=== PATIENT | male | born 1960 | race Caucasian/White ===

== ENCOUNTER 2020-12-03 20:56 | Inpatient (IN) | payer BC ==
[~2020-12-03] VITALS: Ht 180.3 cm; Wt 79.6 kg
[~2020-12-03 20:56] MED LIST: BACTRIM DS TAB1 EACH PO; MECLIZINE HCL25 MG PO; [UNRECOGNIZED DRUG - REMARK]
[2020-12-03 20:58] VITALS: BP 110/79
[2020-12-03 21:28] LABS: ABSOLUTE NEUTROPHILS 6.7 thou/uL (1.4-8.2); BASOPHILS 1.1 % (0.0-2.0); EOSINOPHILS 2.9 % (0.0-3.0); HEMATOCRIT 44.5 % (42.0-52.0); HEMOGLOBIN 15.2 gm/dL (14.0-18.0); LYMPHOCYTES 24.9 % (24.0-44.0); MCH 30.9 pg (26.0-34.0); MCHC 34.1 g/dL (28.0-37.0); MCV 90.4 fL (80.0-100.0); MONOCYTES 7.9 % (1.0-8.0); PLATELET COUNT 276 thou/uL (150-400); POLYS 63.2 % (36.0-66.0); RBC 4.92 mil/uL (4.50-6.00); RDW 13.1 % (10.5-14.5); WBC 10.7 thou/uL (4.0-11.0)
[2020-12-03 21:33] LABS: ANION GAP 3 mmol/L (7-16); BUN 15 mg/dL (7-18); CALCIUM 8.8 mg/dL (8.5-10.1); CHLORIDE 101 mmol/L (98-107); CO2 33 mmol/L (21-32); CREATININE 1.2 mg/dL (0.7-1.3); GLUCOSE 148 mg/dL (74-106); POTASSIUM 3.6 mmol/L (3.5-5.1); SODIUM 137 mmol/L (136-145)
[2020-12-03] MEDS ORDERED: COZAAR 25 MG TA25 M2 PO (21:33)
[2020-12-03] MEDS ORDERED: ASA81BEC PO (21:33)
[2020-12-03] MEDS ORDERED: NORVASC10 MG PO (21:33)
[2020-12-03 21:41] LABS: TROPONIN-I <0.06 ng/mL (<0.06)
[2020-12-03 21:43] LABS: PROTIME 11.1 Seconds (9.3-11.4)
[2020-12-03 22:23] LABS: CHOLESTEROL 202 mg/dL (<200); HDL CHOLESTEROL 26 mg/dL (>40); LDL CHOLESTEROL 129 mg/dL (<100); TC:HDL 7.8 Ratio (Not establshd); TRIGLYCERIDE 238 mg/dL (<150); VLDL 48 mg/dL (<40)
[2020-12-03 22:37] LABS: SERUM ASSESSMENT Clear
[2020-12-04 04:45] VITALS: BP 109/76
--- NOTE | 2020-12-04 06:09 | NUR ---
patient was recieved from warehouse general laborer at approx 2315. patient was keep flat until 0200. patient was able to move around in the bed after. patient was to stay in the bed until after breakfast than able to get up to the chair. patients meagan Tavares placed on the visitor list.rounds were made. the bed is in a low and locked position. the bed alarm is on
[2020-12-04 06:47] LABS: ALBUMIN 3.5 g/dL (3.4-5.0); CALCIUM 8.7 mg/dL (8.5-10.1); POTASSIUM 3.9 mmol/L (3.5-5.1); TOTAL BILIRUBIN 0.2 mg/dL (0.2-1.0); TOTAL PROTEIN 6.6 g/dL (6.4-8.2)
--- NOTE | 2020-12-04 07:07 | EKG ---
[place] [address] [facility] [place] [address] ELECTROCARDIOGRAM REPORT Name: TAYLOR CHAN Room #: 205-P ADM IN M.R.#: [id number] Admission: 12/03/20 Attend Phys: Antelmo Arriola Discharge: Date of : 56 Report #: [id number] [facility] ED Test Date: 2020-12-03 Test Time: 21:07:56 Pat Name: TAYLOR CHAN Department: Room: [facility] Gender: M Protection Agent: [email or web address] : 1960 Requested By: Kyle Shin Order Number: [id number] MD: Arun Sigala Measurements Intervals [facility] Rate: 61 P: 66 NE: 175 QRS: 73 QRSD: 102 T: 90 QT: 414 QTc: 417 Interpretive Statements Sinus rhythm Inferior infarct, acute (RCA) Probable RV involvement, suggest recording right precordial leads Baseline wander in lead(s) III,V1 No previous ECG available for comparison Electronically Signed On 12-04-2020 7:07:12 CDT by Arun Sigala [email or web address] <ELECTRONICALLY SIGNED> By: Arun Sigala MD, [facility] 03/706 06 06 Arun Sigala MD, [facility] /EPI
[2020-12-04 07:10] VITALS: BP 134/88
[2020-12-04 07:15] VITALS: BP 134/88
[2020-12-04] MEDS ORDERED: EFFIENT10 MG PO (09:37)
[2020-12-04] MEDS ORDERED: CRESTOR40 MG PO (09:38)
[2020-12-04] MEDS ORDERED: ASPIRIN325 PO (09:38)
[2020-12-04] MEDS ORDERED: METOPROLOL SUCC25 M1 PO (09:38)
--- NOTE | 2020-12-04 10:05 | EKG ---
[place] [address] [facility] [place] [address] ELECTROCARDIOGRAM REPORT Name: TAYLOR CHAN Room #: 205- ADM IN M.R.#: [id number] Admission: 12/03/20 Attend Phys: Antelmo Arriola Discharge: Date of : 56 Report #: [id number] [facility] Test Date: 2020-12-04 Test Time: 08:46:21 Pat Name: TAYLOR CHAN Department: Room: 205 P Gender: M Heat Treat Furnace Operator: STEVEN : 1960 Requested By: Radha Man Order Number: [id number] MD: Arun Sigala Measurements Intervals [place] Rate: 76 P: 14 [place]: 155 QRS: -14 QRSD: 94 T: 0 QT: 397 QTc: 447 Interpretive Statements Sinus rhythm Baseline wander in lead(s) V1 Compared to ECG 12/03/2020 21:07:56 Myocardial infarct finding no longer present Electronically Signed On 12-04-2020 10:05:00 CDT by Arun Sigala [email or web address] <ELECTRONICALLY SIGNED> By: Arun Sigala MD, [facility] 12/04/20 1005 5 5 Arun Sigala MD, [facility] /EPI
--- NOTE | 2020-12-04 10:35 | 2DMMODE ---
[facility] [place] [address] 2 D/M-MODE ECHOCARDIOGRAM Name: TAYLOR CHAN Room #: 205-P ADM IN M.R.#: [id number] Admission: 12/03/20 Attend Phys: Antelmo Arriola Discharge: Date of : 56 Report #: [id number] THIS REPORT FOR: cc: Selivn Purvis David J. DO Lammoglia, Francisco J. MD ~ APPROVED REPORT Study performed: 12/04/2020 09:49:00 EXAM: Comprehensive 2D, Doppler, and color-flow Echocardiogram Patient Location: Bedside Room #: 205 Status: routine BSA: 2.02 HR: 79 bpm BP: 134/88 mmHg Rhythm: NSR Other Information Study Quality: Good Indications Chest pain. STEMI, status post PCI. Hx: HTN, HLP, tobacco. 2D Dimensions RVDd: 33.42 mm IVSd: 11.86 (7-11mm) LVOT Diam: 23.23 (18-24mm) LVDd: 49.66 mm PWd: 10.26 (7-11mm) Ascending Ao: 35.81 (22-36mm) LVDs: 35.91 (25-40mm) Left Atrium: 35.95 (27-40mm) Aortic Root: 39.66 mm Volumes Left Atrial Volume (Systole) Single Plane 4CH: 35.77 mL Single Plane 2CH: 37.51 mL LA ESV Index: 20.00 mL/m2 Aortic Valve AoV Peak Leroy.: 1.65 m/s AO Peak Gr.: 10.94 mmHg LVOT Max P.69 mmHg LVOT Max V: 1.08 m/s [facility] [address] [place] [address] 2 D/M-MODE ECHOCARDIOGRAM Name: TAYLOR CHAN Digna Room #: 205-P [facility] IN [facility]#: [id number] Admission: 12/03/20 Attend Phys: Antelmo Myles Discharge: Date of : 56 Report #: [id number] [id number] Vmax: 2.77 cm2 Mitral Valve E/A Ratio: 1.2 MV Decel. Time: 158.12 ms MV E Max Leroy.: 0.94 m/s MV A Leroy.: 0.80 m/s MV PHT: 45.85 ms IVRT: 69.20 ms Pulmonary Valve PV Peak Leroy.: 0.92 m/s PV Peak Gr.: 3.39 mmHg Pulmonary Vein P Vein S: 0.86 m/s P Vein A: 0.40 m/s P Vein D: 0.49 m/s P Vein A Dur.: 101.5 msec P Vein S/D Ratio: 1.76 Tricuspid Valve RAP Estimate: 5.00 mmHg Left Ventricle The left ventricle is normal size. Possible hypokinesis of the posterior wall. Borderline concentric left ventricular hypertrophy. Left ventricular systolic function is normal. LVEF is 55-60%. Right Ventricle The right ventricle is normal size. The right ventricular systolic function is normal. Atria The left atrium size is normal. The right atrium size is normal. Aortic Valve The aortic valve is normal in structure. Leaflets are mildly thickened and calcified. Trace aortic regurgitation. There is no aortic valvular stenosis. Mitral Valve The mitral valve is normal in structure. Trace mitral regurgitation. Tricuspid Valve The tricuspid valve is normal in structure. There is no tricuspid valve regurgitation noted. Unable to assess PA pressure. [facility] [place] [address] 2 D/M-MODE ECHOCARDIOGRAM Name: TAYLOR CHAN Digna Room #: 205-P [facility] IN M.R.#: [id number] Admission: 12/03/20 Attend Phys: Antelmo Myles Discharge: Date of : 56 Report #: [id number] Pulmonic Valve The pulmonary valve is normal in structure. There is no pulmonic valvular regurgitation. Great Vessels Aortic root is mildly dilated (4.0cm). The ascending aorta is normal in size. IVC is normal in size and collapses >50% with inspiration. Pericardium There is no pericardial effusion. <Conclusion> The left ventricle is normal size. Borderline concentric left ventricular hypertrophy. LVEF is 55-60%. The aortic valve is normal in structure. Leaflets are mildly thickened and calcified. Trace aortic regurgitation. The mitral valve is normal in structure. Trace mitral regurgitation. The tricuspid valve is normal in structure. There is no tricuspid valve regurgitation noted. Unable to assess PA pressure. The pulmonary valve is normal in structure. Aortic root is mildly dilated (4.0cm). The ascending aorta is normal in size. There is no pericardial effusion. <ELECTRONICALLY SIGNED> By: Antelmo Arriola MD 12/04/20 1035 1035 1035 Antelmo Arriola MD /INF
[2020-12-04 11:30] VITALS: BP 115/73
[2020-12-04 14:33] LABS: HEMATOCRIT 46.3 % (42.0-52.0); HEMOGLOBIN 15.3 gm/dL (14.0-18.0); MCH 30.8 pg (26.0-34.0); MCV 93.3 fL (80.0-100.0); RBC 4.96 mil/uL (4.50-6.00); RDW 13.1 % (10.5-14.5); WBC 10.3 thou/uL (4.0-11.0)
[2020-12-04 15:10] VITALS: BP 115/80
--- NOTE | 2020-12-04 16:45 | NUR ---
RECEIVED PT'S CARE AROUND 0710; PT. ON BED; ALERT; R. GROIN SIDE C/D/I; NO HEMATOMA; DURING AM ASSESSMENT PT. AOX4; NO C/O PAIN; AM MEDICATIONS GIVEN; EDUCATED ABOUT NEW MEDICATIONS; EDUCATED ABOUT USING URINAL; ST. UNDERSTANDING; EDUCATED D/C NEXT DAY; SR ON THE MONITOR; EDUCATED ABOUT CALLING IMMEDIATELY IF HAVING PAIN; ST. UNDERSTANDING; SR ON THE MONITOR; ASSESSMENT CHARGED; FOLLOWING POC; WILL PASS ON REPORT;
[2020-12-04 19:58] VITALS: BP 132/85
--- NOTE | 2020-12-05 04:03 | NUR ---
SLEPT MOST OF SHIFT. UP AD KURT TO BATHROOM WITH STEADY GAIT. NO COMPLAINTS OF CHEST PAIN OR SHORTNESS OF BREATH THIS NOC. RIGHT GROIN SITE DSG C/D/I WITHOUT HEMATOMA OR BLEEDING. PROGRESSING TOWARDS DISCHARGE GOALS TODAY. WORKING ON GOALS AND PLAN OF CARE FOR NOC. CONTINUE TO ASSES.
[2020-12-05 04:55] VITALS: BP 113/72
[2020-12-05 07:10] VITALS: BP 109/68
--- NOTE | 2020-12-05 10:19 | NUR ---
RECEIVED PT'S CARE AROUND 0710; PT. ON BED; ALERT; DURING AM ASSESSMENT PT. AOX4; NO C/O PAIN; SR ON THE MONITOR; AM MEDICATIONS GIVEN; EDUCATED ABOUT AM MEDICATIONS; ST. UNDERSTANDING; SR ON THE MONITOR; EDUCATED ABOUT D/C PROCESS; ST. UNDERSTANDING; ASSESSMENT CHARGED; FOLLOWING POC; WILL WORK ON D/C ORDERS;
[2020-12-05 10:31] VITALS: BP 109/68
--- NOTE | 2020-12-06 09:04 | EKG ---
[place] [address] [address] [place] [address] ELECTROCARDIOGRAM REPORT Name: TAYLOR CHAN Room #: 205-P [facility] IN M.R.#: [id number] Admission: 12/03/20 Attend Phys: Antelmo Arriola Discharge: 12/05/20 Date of : 56 Report #: [id number] [facility] ED Test Date: 2020-12-03 Test Time: 21:01:50 Pat Name: TAYLOR CHAN Department: Room: [facility] Gender: M Finish Carpenter: CARDIOSEVER : 1960 Requested By: Nicho Corcoran Order Number: [id number] MD: Arun Sigala Measurements Intervals [place] Rate: 57 P: 0 OR: 34 QRS: 74 QRSD: 97 T: 87 QT: 542 QTc: 528 Interpretive Statements Sinus rhythm Short OR interval Biatrial enlargement Inferoposterior infarct, acute (LCx) Prolonged QT interval ST depression V1-V3, suggest recording posterior leads Artifact in lead(s) I,II,III,aVR,aVL,aVF and baseline wander in lead(s) I, I,II,aVR,aVF No previous ECG available for comparison Electronically Signed On 12-06-2020 9:03:58 CDT by Arun Sigala [email or web address] <ELECTRONICALLY SIGNED> By: Arun Sigala MD, [facility] 12/06/20902 00 00 Arun Sigala MD, [facility] /EPI
== END 2020-12-05 10:52 | disposition home or self-care (01) | DRG 247 ==
LOC: ER 20:56 → TBACV 21:56 → 2N 21:56
PROVIDERS: Emergency Medicine; Internal Medicine; Nurse Practitioner; ADMIT Internal Medicine; ATTEND Internal Medicine
PROC: 4A023N7 Measurement of Cardiac Sampling and Pressure, Left Heart, Percutaneous Approach (ICD-10-PCS; principal; 2020-12-03)
PROC: 027034Z Dilation of Coronary Artery, One Artery with Drug-eluting Intraluminal Device, Percutaneous Approach (ICD-10-PCS; principal; 2020-12-03)
PROC: B2111ZZ Fluoroscopy of Multiple Coronary Arteries using Low Osmolar Contrast (ICD-10-PCS; principal; 2020-12-03)
DX: I21.29 ST elevation (STEMI) myocardial infarction involving other sites (principal); I10 Essential (primary) hypertension; F17.210 Nicotine dependence, cigarettes, uncomplicated; E78.5 Hyperlipidemia, unspecified; I25.10 Atherosclerotic heart disease of native coronary artery without angina pectoris; Z71.6 Tobacco abuse counseling; Z79.82 Long term (current) use of aspirin; Z79.899 Other long term (current) drug therapy
CPT/HCPCS: 10081

== ENCOUNTER 2021-09-07 18:27 | Emergency (ER) | payer BC ==
[~2021-09-07] VITALS: Ht 180.3 cm; Wt 74.8 kg
[~2021-09-07 18:27] MED LIST changes: +ASA81BEC PO; +ASPIRIN325 PO; +COZAAR 25 MG TA25 M2 PO; +CRESTOR40 MG PO; +EFFIENT10 MG PO; +METOPROLOL SUCC25 M1 PO; +NORVASC10 MG PO
[2021-09-07 18:44] VITALS: BP 151/73
[2021-09-07 21:17] LABS: HEMATOCRIT 42.1 % (42.0-52.0); HEMOGLOBIN 13.9 gm/dL (14.0-18.0); MCH 30.8 pg (26.0-34.0); MCV 93.2 fL (80.0-100.0); RBC 4.52 mil/uL (4.50-6.00); RDW 12.3 % (10.5-14.5); WBC 8.3 thou/uL (4.0-11.0)
[2021-09-07 21:25] LABS: CALCIUM 9.2 mg/dL (8.5-10.1); POTASSIUM 4.5 mmol/L (3.5-5.1)
[2021-09-07 21:31] LABS: ALBUMIN 3.7 g/dL (3.4-5.0); MAGNESIUM 2.2 mg/dL (1.8-2.4); TOTAL BILIRUBIN 0.2 mg/dL (0.2-1.0); TOTAL PROTEIN 7.1 g/dL (6.4-8.2)
--- NOTE | 2021-09-08 12:51 | EKG ---
[address] [address] ELECTROCARDIOGRAM REPORT Name: TAYLOR CHAN [id number] Admission: 09/07/21 Attend Phys: Discharge: Date of : 56 Report #: [id number] [facility] ED Test Date: 2021-09-07 Test Time: 18:34:54 Pat Name: TAYLOR CHAN Department: Room: Gender: External Relations Manager: ANTWON : 1960 Requested By: Nalini Springer Order Number: [id number] MD: Arun Sigala Measurements Intervals [place] Rate: 75 P: -11 ID: 141 QRS: 56 QRSD: 106 T: 38 QT: 393 QTc: 439 Interpretive Statements Sinus rhythm Compared to ECG 12/04/2020 08:46:21 No significant changes Electronically Signed On 09-08-2021 12:51:07 [employer] by Arun Sigala [email or web address] <ELECTRONICALLY SIGNED> By: Arun Sigala MD, [facility] 09/08/21 1251 1834 1834 Arun Sigala MD, [facility] /EPI
== END 2021-09-07 22:00 | disposition home or self-care (01) ==
LOC: ER 18:27
PROVIDERS: Nurse Practitioner Family
DX: F41.9 Anxiety disorder, unspecified (principal); R00.2 Palpitations; I10 Essential (primary) hypertension; I25.10 Atherosclerotic heart disease of native coronary artery without angina pectoris; F17.210 Nicotine dependence, cigarettes, uncomplicated; Z79.82 Long term (current) use of aspirin; Z79.899 Other long term (current) drug therapy